=== PATIENT | female | born 1940 | race Two or more races ===

== ENCOUNTER 2019-03-13 08:18 | Outpatient (CLI) | payer OTHER | END 2019-03-13 13:10 | disposition home or self-care (01) | LOC: LAB 08:18 → RAD 08:18 | DX: R22.1 Localized swelling, mass and lump, neck (principal) ==

== ENCOUNTER 2019-03-14 07:29 | Outpatient (CLI) | payer OTHER | END 2019-03-14 15:00 | disposition home or self-care (01) | LOC: TOM 07:29 | DX: R22.1 Localized swelling, mass and lump, neck (principal) | CPT/HCPCS: 70491; Q9965 ==